=== PATIENT | male | born 1950 | race Caucasian/White ===

== ENCOUNTER 2018-04-30 12:44 | Emergency (ER) | payer MEDICARE, OTHER | END 2018-04-30 13:35 | disposition home or self-care (01) | LOC: MADERS 12:44 | DX: M10.9 Gout, unspecified (principal); E11.9 Type 2 diabetes mellitus without complications; I10 Essential (primary) hypertension; Z79.84 Long term (current) use of oral hypoglycemic drugs | CPT/HCPCS: 99283 ==